=== PATIENT | female | born 1970 | race Caucasian/White ===

== ENCOUNTER 2024-08-26 08:17 | Outpatient (AMB) | payer MEDICAID, SELFPAY ==
[2024-08-26 08:36] VITALS: BP 135/86; PULSE 71; RESP 18; TEMP 36.3; O2SAT 99; BMI 24.3
--- NOTE | 2024-08-26 08:36 | PD.ORTHCLVIS ---
Vital signs 08/26/24 08:36 Height 1.7 m Height Method Stated Weight 70.449 kg Weight Measurement Method Standing Scale BMI 24.3 BP 135/86 H Blood Pressure Source Automatic Cuff Blood Pressure Location Right Upper Arm Position Sitting Respiration 18 Pulse 71 Pulse Source Monitor Temp 97.3 F Temp Source Temporal Artery Scan Pulse Oximetry (%) 99 Oxygen Delivery Method Room Air Med/Allergies Allergies & Medications Allergies No Known Allergies Allergy (Verified 08/26/24 08:37) Medication Reconciliation gabapentin 300 mg capsule 300 mg PO BID 08/26/24 [History Confirmed 08/26/24] Subjective Visit Visit for: follow up visit and x-rays Immunization / Flu Flu Vaccine in the Last 12 Months: No Flu Vaccine Exclusion Criteria: No Exclusion Criteria History of Present Illness Chief complaint: F/U MRI/XRAYS Patient is a 54-year-old female with bilateral hip and thigh pain. This been ongoing for 3 years. She also has had a history of multiple neurological issues including a foot drop on the right. It occurred for over 8 months and is resolved somewhat. She reports the pain is a burning pain and that she is extremely weak in both the legs. She previously saw a spine surgeon and was told that he never really did anything and signed off on her. Personal History Occupation: COMPOSITION TEACHER Red flag PMH: none Pain Pain level (0-10): 5 Pain duration: COMES AND GOES Pain location: inside (medial), outside (lateral), anterior and posterior Pain quality: sharp, dull and aching Pain timing: increases with activity Associated signs & symptoms: numbness and weakness Ambulatory data Ambulatory device: none Treatments Improvement with previous injections: No Improvement with PT: No Improvement with NSAIDS: n/a Review of Systems Review of Systems: All systems negative unless otherwise noted in HPI. Exam Exam Patient is in no acute distress and is cooperative with the examination today. Breathing is nonlabored. In no respiratory distress. Patient has no paraspinal tenderness. Spinal deformity [cannot] be appreciated. The gait of the patient is [nonantalgic] Bilateral extremities were evaluated and demonstrates sensation intact to light touch. Palpable pedal pulses are present. No significant edema is present. Bilateral knees were examined and the patient has full strength and range of motion.. The right hip was examined. Patient was able to flex to 90 degrees, adduct to 30 degrees, abduct to 40 degrees, internally rotate to 20 degrees, and externally rotate to 20 degrees. Patient has a negative logroll. Stinchfield is negative. The patient is nontender diffusely to touch. The left hip was examined. Patient was able to flex to [90] degrees, adduct to [30] degrees, abduct to [40] degrees, internally rotate to [20] degrees, and externally rotate to [20] degrees. Patient has a [negative] logroll. The stinchfield is [negative]. I reviewed her x-rays and MRI from [facility]. The x-rays demonstrate some sclerosis in the left femoral head. It is definitely pretty collapse. 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 I would watch her avascular necrosis right now as it is pretty collapse. All her symptoms appear to be from the spine that she has a positive shopping cart sign, and MRI evidence of spinal stenosis. There is also radicular symptoms all the way down to her toes. I discussed that this is unlikely to be caused by AVN alone. I do think that the spine is likely cause and she is in agreement. I recommend that she see a spine surgeon as there is MRI evidence of spinal stenosis which is actually consistent with her clinical exam as well. (2) Spinal stenosis: Status: Acute Office Procedures GNS Level of Care Nursing/Assessment Patient Status: Established Patient Nursing Assessment/Reassesment: Medication Reconciliation, Update PMH in EMR and Vital Signs Coordination of Care: Complex Care and Chronic Disease 1-5, Education Complex Pt/Fam, Consent,records obtained, informed consent, Results/Orders obtained and Staff clarify orders Established Patient Charge Established Patient Point Assignment: 95 Established Patient Point Charge: EP Level 3 (80-115) Past Medical History Past Medical History Have you ever been diagnosed with any of the following: Respiratory Problems Smoking: No Smoking Cessation Counseling: No
== END 2024-08-26 09:14 | disposition home or self-care (01) ==
LOC: HODSRG 08:17
PROVIDERS: Supervising Provider Orthopaedic Surgery Adult Reconstructive Orthopaedic Surgery; Visit Provider Orthopaedic Surgery Adult Reconstructive Orthopaedic Surgery
DX: M21.371 Foot drop, right foot (principal); M48.061 Spinal stenosis, lumbar region without neurogenic claudication
CPT/HCPCS: 99213; G0463

== ENCOUNTER 2024-11-01 12:56 | Outpatient (AMB) | payer MEDICAID, SELFPAY ==
--- NOTE | 2024-11-01 13:13 | PD.ORTHCLVIS ---
Vital signs 11/01/24 13:14 Height 1.7 m Height Method Stated Weight 71.214 kg Weight Measurement Method Standing Scale BMI 24.6 BP 149/92 H Blood Pressure Source Automatic Cuff Blood Pressure Location Left Upper Arm Position Sitting Respiration 18 Pulse 76 Pulse Source Monitor Temp 97.6 F Temp Source Temporal Artery Scan Pulse Oximetry (%) 98 Oxygen Delivery Method Room Air Med/Allergies Allergies & Medications Allergies No Known Allergies Allergy (Verified 11/01/24 13:14) Medication Reconciliation gabapentin 300 mg capsule 300 mg PO BID 08/26/24 [History Confirmed 11/01/24] Exam Exam Patient is in no acute distress and is cooperative with the examination today. Breathing is nonlabored. In no respiratory distress. Patient has no paraspinal tenderness. Spinal deformity [cannot] be appreciated. The gait of the patient is [nonantalgic] Bilateral extremities were evaluated and demonstrates sensation intact to light touch. Palpable pedal pulses are present. No significant edema is present. Bilateral knees were examined and the patient has full strength and range of motion.. The right hip was examined. Patient was able to flex to 90 degrees, adduct to 30 degrees, abduct to 40 degrees, internally rotate to 20 degrees, and externally rotate to 20 degrees. Patient has a negative logroll. Stinchfield is negative. The patient is nontender diffusely to touch. The left hip was examined. Patient was able to flex to [90] degrees, adduct to [30] degrees, abduct to [40] degrees, internally rotate to [20] degrees, and externally rotate to [20] degrees. Patient has a [negative] logroll. The stinchfield is [negative]. I reviewed her x-rays and MRI from [facility]. The x-rays demonstrate some sclerosis in the left femoral head. It is definitely pretty collapse. I also reviewed her spine MRI which demonstrates central canal stenosis at L4-5 I reviewed her MRI of the knee. There is no official report. I do see bone bruises on both the femur and the tibia. 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 I would watch her avascular necrosis right now as it is precollapse. All her symptoms appear to be from the spine that she has a positive shopping cart sign, and MRI evidence of spinal stenosis. There is also radicular symptoms all the way down to her toes. On x-ray there is sclerosis of the femoral head and I am worried that she has avascular porosis. Will get an MRI to confirm this. I also recommend that she get a spine evaluation if she has had bilateral radicular symptoms for a while and an abnormal MRI (3) Avascular necrosis of hip: Status: Acute Office Procedures GNS Level of Care Nursing/Assessment Patient Status: Established Patient Nursing Assessment/Reassesment: Medication Reconciliation, Update PMH in EMR and Vital Signs Coordination of Care: Complex Care and Chronic Disease 1-5, Education Complex Pt/Fam, Consent,records obtained, informed consent, 1 Ins Authorization, Results/Orders obtained and Staff clarify orders Established Patient Charge Established Patient Point Assignment: 110 Established Patient Point Charge: Level 3 (80-115) MA Intake Visit Data Collection New Patient or Established: Established Patient (seen at 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 This has been ongoing for 3 years. She also has had a history of multiple neurological issues including a foot drop on the right. It occurred for over 8 months and is resolved somewhat. She reports the pain is a burning pain and that she is extremely weak in both the legs. She previously saw a spine surgeon and was told that he never really did anything and signed off on her. She is currently being referred for spine evaluation. I would like to get bilateral hip MRIs as we do not have a confirmed diagnosis of AVN Pain Pain level (0-10): 6 Pain duration: ON AND OFF Pain location: inside (medial), outside (lateral), anterior and posterior Pain quality: sharp, dull and aching Pain timing: night, increases with activity and stairs Associated signs & symptoms: stiffness Ambulatory data Ambulatory device: none Treatments Improvement with previous injections: No Improvement with PT: No Improvement with NSAIDS: no Review of Systems Review of Systems: All systems negative unless otherwise noted in HPI.
[2024-11-01 13:14] VITALS: BP 149/92; PULSE 76; RESP 18; TEMP 36.4; O2SAT 98; BMI 24.6
== END 2024-11-01 13:21 | disposition home or self-care (01) ==
LOC: HODSRG 12:56
PROVIDERS: Supervising Provider Orthopaedic Surgery Adult Reconstructive Orthopaedic Surgery; Visit Provider Orthopaedic Surgery Adult Reconstructive Orthopaedic Surgery
DX: M48.061 Spinal stenosis, lumbar region without neurogenic claudication (principal); M21.371 Foot drop, right foot; M87.88 Other osteonecrosis, other site
CPT/HCPCS: 99213; G0463

== ENCOUNTER → 2024-11-30 | Outpatient (CLI) | payer MEDICAID, SELFPAY ==
--- NOTE | 2024-11-30 | XR_ITS ---
Examination: MRI left hip without intravenous contrast. Date and time of exam: November 30, 2024 1438 hours INDICATIONS: Left hip pain months Technique: Multiple MRI images of the left hip have been obtained T1 weighted coronal sections, TR 500, TE 12 Proton density coronal fat saturated images, TR 3000, TE 71 T2-weighted coronal images, 5850, TE 104 T1-weighted axial images, TR 521, TE 12 T2-weighted axial fat suppressed images, TR 5730, TE 103. Findings: There is abnormal signal in the left femoral head, occupying approximately 30% of the femoral head No fracture or marrow edema Minimal left effusion No definite labral tear Bones of the pelvis exhibit adequate signal Contracted urinary bladder IMPRESSION: Avascular necrosis left femoral head
--- NOTE | 2024-11-30 14:00 | XR_ITS ---
Examination: MRI right hip without intravenous contrast. Date and time of exam: November 30, 2024 1438 hours INDICATIONS: Bilateral hip pain beginning January 2023 Technique: Multiple MRI images of the right hip have been obtained T1 weighted coronal sections, TR 500, TE 12 Proton density coronal fat saturated images, TR 3000, TE 71 T2-weighted coronal images, 5850, TE 104 T1-weighted axial images, TR 521, TE 12 T2-weighted axial fat suppressed images, TR 5730, TE 103. Findings: Mild narrowing right hip joint Serpiginous abnormal signal involving the femoral head occupying 30% of the articulating surface No occult fracture No asymmetric hip effusion Small [id number] images do not demonstrate definite labral tear IMPRESSION: Avascular necrosis right femoral head
== END | disposition home or self-care (01) ==
PROVIDERS: Referring Provider Orthopaedic Surgery Adult Reconstructive Orthopaedic Surgery; Visit Provider Orthopaedic Surgery Adult Reconstructive Orthopaedic Surgery
DX: M87.852 Other osteonecrosis, left femur (principal); M87.851 Other osteonecrosis, right femur
CPT/HCPCS: 73721

== ENCOUNTER 2024-12-06 07:55 | Outpatient (AMB) | payer MEDICAID, SELFPAY ==
--- NOTE | 2024-12-06 07:59 | ORTHONT_ITS ---
Vital signs 12/06/24 08:00 Height 1.7 m Height Method Stated Weight 69.626 kg Weight Measurement Method Standing Scale BMI 24.0 BP 147/86 H Blood Pressure Source Automatic Cuff Blood Pressure Location Left Upper Arm Position Sitting Respiration 19 Pulse 80 Pulse Source Monitor Temp 97.4 F Temp Source Temporal Artery Scan Pulse Oximetry (%) 92 L Oxygen Delivery Method Room Air Med/Allergies Allergies & Medications Allergies No Known Allergies Allergy (Verified 12/06/24 08:00) Medication Reconciliation gabapentin 300 mg capsule 300 mg PO BID 08/26/24 [History Confirmed 12/06/24] Exam Exam Patient is in no acute distress and is cooperative with the examination today. Breathing is nonlabored. In no respiratory distress. Patient has no paraspinal tenderness. Spinal deformity [cannot] be appreciated. The gait of the patient is [nonantalgic] Bilateral extremities were evaluated and demonstrates sensation intact to light touch. Palpable pedal pulses are present. No significant edema is present. Bilateral knees were examined and the patient has full strength and range of motion.. The right hip was examined. Patient was able to flex to 90 degrees, adduct to 30 degrees, abduct to 40 degrees, internally rotate to 20 degrees, and externally rotate to 20 degrees. Patient has a negative logroll. Stinchfield is negative. The patient is nontender diffusely to touch. The left hip was examined. Patient was able to flex to [90] degrees, adduct to [30] degrees, abduct to [40] degrees, internally rotate to [20] degrees, and externally rotate to [20] degrees. Patient has a [negative] logroll. The stinchfield is [negative]. I reviewed her x-rays and MRI from [facility]. The x-rays demonstrate some sclerosis in the left femoral head. It is definitely pretty collapse. I also reviewed her spine MRI which demonstrates central canal stenosis at L4-5 I reviewed her MRI of the knee. There is no official report. I do see bone bruises on both the femur and the tibia. The ACL is actually intact MRIs of the hip from [facility] were reviewed by me today. This demonstrates mild bilateral hip avascular porosis was T2 signal changes in the femoral head. 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 I would watch her avascular necrosis right now as it is precol lapse. All her symptoms appear to be from the spine that she has a positive shopping cart sign, and MRI evidence of spinal stenosis. There is also radicular symptoms all the way down to her toes. On x-ray there is sclerosis of the femoral head and I am worried that she has avascular necrosis. We did obtain an MRI which demonstrates mild avascular porosis. Her symptoms appear to be from the hip and she has nerve issues such as a foot drop and bilateral radicular painWe will continue to watch her hip every 6 months to a year to see if the avascular necrosis worsens. We discussed with her that I would continue to watch it as she has a completely benign hip examination at this point (3) Avascular necrosis of hip: Status: Acute Office Procedures GNS Level of Care Nursing/Assessment Patient Status: Established Patient Nursing Assessment/Reassesment: Medication Reconciliation, Update PMH in EMR and Vital Signs Coordination of Care: Complex Care and Chronic Disease 1-5, Education Complex Pt/Fam, Consent,records obtained, informed consent, Results/Orders obtained and Staff clarify orders Established Patient Charge Established Patient Point Assignment: 95 Established Patient Point Charge: Level 3 (80-115) MA Intake Visit Data Collection New Patient or Established: Established Patient (seen at [facility] within 3 years) Reason for Visit:: MRI BL HIP RESULTS Seen by Clinical Staff ONLY (RN/MA): No 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 This has been ongoing for 3 years. She also has had a history of multiple neurological issues including a foot drop on the right. It occurred for over 8 months and is resolved somewhat. She reports the pain is a burning pain and that she is extremely weak in both the legs. She previously saw a spine surgeon and was told that he never really did anything and signed off on her. She is currently b [facility] referred for spine evaluation. She is set for spine evaluation in December. Pain Pain level (0-10): 7 Pain duration: CONSTANT Pain location: inside (medial) Pain quality: aching Pain timing: night, increases with activity and stairs Associated signs & symptoms: none Ambulatory data Ambulatory device: none Treatments Improvement with previous injections: No Improvement with PT: No Improvement with NSAIDS: no Review of Systems Review of Systems: All systems negative unless otherwise noted in HPI.
[2024-12-06 08:00] VITALS: BP 147/86; PULSE 80; RESP 19; TEMP 36.3; O2SAT 92; BMI 24.0
== END 2024-12-06 08:15 | disposition home or self-care (01) ==
LOC: HODSRG 07:55
PROVIDERS: Supervising Provider Orthopaedic Surgery Adult Reconstructive Orthopaedic Surgery; Visit Provider Orthopaedic Surgery Adult Reconstructive Orthopaedic Surgery
DX: M48.061 Spinal stenosis, lumbar region without neurogenic claudication (principal); M21.371 Foot drop, right foot; M87.88 Other osteonecrosis, other site
CPT/HCPCS: 99213; G0463

== ENCOUNTER 2025-06-06 08:02 | Outpatient (AMB) | payer MEDICAID, SELFPAY ==
--- NOTE | 2025-06-06 08:03 | PD.ORTHCLVIS ---
Vital signs 06/06/25 08:09 Height 1.7 m Height Method Measured Weight 63.56 kg Weight Measurement Method Standing Scale BMI 21.9 BP 105/69 Blood Pressure Source Automatic Cuff Blood Pressure Location Right Upper Arm Position Sitting Respiration 18 Pulse 67 Pulse Source Monitor Temp 97.5 F Temp Source Temporal Artery Scan Pulse Oximetry (%) 98 Oxygen Delivery Method Room Air Med/Allergies Allergies & Medications Allergies No Known Allergies Allergy (Verified 06/06/25 08:10) Exam Exam Patient is in no acute distress and is cooperative with the examination today. Breathing is nonlabored. In no respiratory distress. Patient has no paraspinal tenderness. Spinal deformity [cannot] be appreciated. The gait of the patient is [nonantalgic] Bilateral extremities were evaluated and demonstrates sensation intact to light touch. Palpable pedal pulses are present. No significant edema is present. Bilateral knees were examined and the patient has full strength and range of motion.. The right hip was examined. Patient was able to flex to 90 degrees, adduct to 30 degrees, abduct to 40 degrees, internally rotate to 20 degrees, and externally rotate to 20 degrees. Patient has a negative logroll. Stinchfield is negative. The patient is nontender diffusely to touch. The left hip was examined. Patient was able to flex to [90] degrees, adduct to [30] degrees, abduct to [40] degrees, internally rotate to [20] degrees, and externally rotate to [20] degrees. Patient has a [negative] logroll. The stinchfield is [negative]. I reviewed her x-rays and MRI from [facility]. The x-rays demonstrate some sclerosis in the left femoral head. It is definitely pre collapse. I also reviewed her spine MRI which demonstrates central canal stenosis at L4-5 I reviewed her MRI of the knee. There is no official report. I do see bone bruises on both the femur and the tibia. The ACL is actually intact MRIs of the hip from [facility] were reviewed by me today. This demonstrates mild bilateral hip avascular necrosis was T2 signal changes in the femoral head. 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 I would watch her avascular necrosis right now as it is precollapse. All her symptoms appear to be from the spine that she has a positive shopping cart sign, and MRI evidence of spinal stenosis. There is also radicular symptoms all the way down to her toes. On x-ray there is sclerosis of the femoral head and I am worried that she has avascular necrosis which we confirmed on MRI. Her symptoms appear to be from the hip and she has nerve issues such as a foot drop and bilateral radicular pain. We will continue to watch her hip every 6 months to a year to see if the avascular necrosis worsens. We will get new x-rays today and see her in about 6 months (3) Avascular necrosis of hip: Status: Acute Office Procedures GNS Level of Care Nursing/Assessment Patient Status: Established Patient Nursing Assessment/Reassesment: Medication Reconciliation, Update PMH in EMR and Vital Signs Coordination of Care: Complex Care and Chronic Disease 1-5, Education Complex Pt/Fam, Consent,records obtained, informed consent, Lab and Imaging orders, Results/Orders obtained and Staff clarify orders Established Patient Charge Established Patient Point Assignment: 110 Established Patient Point Charge: EP Level 3 (80-115) MA Intake Visit Data Collection New Patient or Established: Established Patient (seen at [facility] within 3 years) Reason for Visit:: BILATERAL HIP PAIN Seen by Clinical Staff ONLY (RN/MA): No 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 PCP or OBGYN visit in last 3 months: Yes Hx Now: No Do You Feel Safe at Home: Yes Authorities Contacted: N/A Questionairres Past Medical History Past Medical History Have you ever been diagnosed with any of the following: Respiratory Problems Smoking: No Smoking Cessation Counseling: No Smoking Exposure: No Subjective Visit Visit for: follow up visit and hip Immunization / Flu Flu Vaccine in the Last 12 Months: No Flu Vaccine Exclusion Criteria: No Exclusion Criteria History of Present Illness Chief complaint: BILATERAL HIP PAIN Patient is a 54-year-old female with bilateral hip and thigh pain. This has been ongoing for 3 years. She also has had a history of multiple neurological issues including a foot drop on the right. It occurred for over 8 months and is resolved somewhat. She reports the pain is a burning pain and that she is extremely weak in both the legs. She previously saw a spine surgeon and was told that he never really did anything and signed off on her. She is currently being referred for spine evaluation. She has been getting a spine evaluation Personal History Red flag PMH: none BMI Counceling provided: Yes Pain Pain level (0-10): 5 Pain duration: CONSTANT Pain location: inside (medial) Pain quality: aching Pain timing: night, increases with activity and stairs Associated signs & symptoms: none Ambulatory data Ambulatory device: none Treatments Improvement with previous injections: No Improvement with PT: No Improvement with NSAIDS: no Review of Systems Review of Systems: All systems negative unless otherwise noted in HPI.
[2025-06-06 08:09] VITALS: BP 105/69; PULSE 67; RESP 18; TEMP 36.4; O2SAT 98; BMI 21.9
--- NOTE | 2025-06-06 08:18 | XR_ITS ---
Examination: Bilateral hips, AP pelvis, 5 views Technique: AP, lateral views both hips, AP pelvis, 5 views Exam date and time: June 06, 2025 0829 hours INDICATIONS: Bilateral rib pain beginning 2 years ago FINDINGS: Moderate osteopenia. Moderate bilateral hip osteoarthritis Subtle sclerosis in both femoral heads No fractures Bones of the pelvis intact IMPRESSION: Moderate bilateral hip osteoarthritis
== END 2025-06-06 08:20 | disposition home or self-care (01) ==
PROVIDERS: Supervising Provider Orthopaedic Surgery Adult Reconstructive Orthopaedic Surgery; Visit Provider Orthopaedic Surgery Adult Reconstructive Orthopaedic Surgery
DX: M25.552 Pain in left hip (principal); M25.551 Pain in right hip; M16.0 Bilateral primary osteoarthritis of hip; M21.371 Foot drop, right foot; M48.00 Spinal stenosis, site unspecified; M87.88 Other osteonecrosis, other site
CPT/HCPCS: 73522; 99213; G0463

== ENCOUNTER 2025-09-05 07:46 | Outpatient (AMB) | payer MEDICAID, SELFPAY ==
--- NOTE | 2025-09-05 08:05 | ORTHONT_ITS ---
Vital signs 09/05/25 08:06 Height 1.7 m Height Method Measured Weight 64.098 kg Weight Measurement Method Standing Scale BMI 22.1 BP 123/82 Blood Pressure Source Automatic Cuff Blood Pressure Location Left Upper Arm Position Sitting Respiration 18 Pulse 72 Pulse Source Monitor Temp 97.4 F Temp Source Temporal Artery Scan Pulse Oximetry (%) 98 Oxygen Delivery Method Room Air Med/Allergies Allergies & Medications Allergies No Known Allergies Allergy (Verified 09/05/25 08:07) Medication Reconciliation gabapentin 300 mg capsule 300 mg PO BID 08/26/24 [History Confirmed 09/05/25] Exam Exam Patient is in no acute distress and is cooperative with the examination today. Breathing is nonlabored. In no respiratory distress. Patient has no paraspinal tenderness. Spinal deformity [cannot] be appreciated. The gait of the patient is [nonantalgic] Bilateral extremities were evaluated and demonstrates sensation intact to light touch. Palpable pedal pulses are present. No significant edema is present. Bilateral knees were examined and the patient has full strength and range of motion.. The right hip was examined. Patient was able to flex to 90 degrees, adduct to 30 degrees, abduct to 40 degrees, internally rotate to 20 degrees, and externally rotate to 20 degrees. Patient has a negative logroll. Stinchfield is negative. The patient is nontender diffusely to touch. The left hip was examined. Patient was able to flex to [90] degrees, adduct to [30] degrees, abduct to [40] degrees, internally rotate to [20] degrees, and externally rotate to [20] degrees. Patient has a [negative] logroll. The stinchfield is [negative]. 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 This femoral head is still severe I reviewed her MRI of the knee. There is no official report. I do see bone bruises on both the femur and the tibia. The ACL is actually intact MRIs of the hip from [facility] imaging were reviewed by me today. This demonstrates mild bilateral hip avascular necrosis was T2 signal changes in the femoral head. 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 I would watch her avascular necrosis right now as it is precollapse. All her symptoms appear to be from the spine that she has a positive shopping cart sign, and MRI evidence of spinal stenosis. There is also radicular symptoms all the way down to her toes. On x-rays there is mild to moderate arthritis and avascular porosis. We will continue to monitor it. Will see her in approximately 6 months. We discussed that should this progress significantly we would discuss about different operative options (3) Avascular necrosis of hip: Status: Acute Office Procedures GNS Level of Care Nursing/Assessment Patient Status: Established Patient Nursing Assessment/Reassesment: Medication Reconciliation, Update PMH in EMR and Vital Signs Coordination of Care: Complex Care and Chronic Disease 1-5, Education Complex Pt/Fam, Consent,records obtained, informed consent, Results/Orders obtained and Staff clarify orders Established Patient Charge Established Patient Point Assignment: 95 Established Patient Point Charge: Level 3 (80-115) MA Intake Visit Data Collection New Patient or Established: Established Patient (seen at [facility] within 3 years) Reason for Visit:: BILATERAL HIP PAIN/XRAY RESULTS Seen by Clinical Staff ONLY (RN/MA): No Pit Inspector Required: No PCP or OBGYN visit in last 3 months: Yes Hx Now: No Do You Feel Safe at Home: Yes Authorities Contacted: N/A Questionairres Past Medical History Past Medical History Have you ever been diagnosed with any of the following: Respiratory Problems Smoking: No Smoking Cessation Counseling: No Smoking Exposure: No Subjective Visit Visit for: follow up visit and hip Immunization / Flu Flu Vaccine in the Last 12 Months: No Flu Vaccine Exclusion Criteria: No Exclusion Criteria History of Present Illness Chief complaint: BILATERAL HIP PAIN/XRAY RESULTS Patient is a 54-year-old female with bilateral hip and thigh pain. This has been ongoing for 3 years. She also has had a history of multiple neurological issues including a foot drop on the right. It occurred for over 8 months and is resolved somewhat. She reports the pain is a burning pain and that she is extremely weak in both the legs. She previously saw a spine surgeon and was told that he never really did anything and signed off on her. She is currently being referred for spine evaluation. She has been getting a spine evaluation and was told she needs a fusion. Her hip pain is tolerable. Personal History Red flag PMH: none BMI Counceling provided: Yes Pain Pain level (0-10): 6 Pain duration: CONSTANT Pain location: inside (medial) Pain quality: aching Pain timing: night, increases with activity and stairs Associated signs & symptoms: none Ambulatory data Ambulatory device: none Treatments Improvement with previous injections: No Improvement with PT: No Improvement with NSAIDS: no Review of Systems Review of Systems: All systems negative unless otherwise noted in HPI.
[2025-09-05 08:06] VITALS: BP 123/82; PULSE 72; RESP 18; TEMP 36.3; O2SAT 98; BMI 22.1
== END 2025-09-05 08:21 | disposition home or self-care (01) ==
PROVIDERS: Supervising Provider Orthopaedic Surgery Adult Reconstructive Orthopaedic Surgery; Visit Provider Orthopaedic Surgery Adult Reconstructive Orthopaedic Surgery
DX: M87.88 Other osteonecrosis, other site (principal); M48.00 Spinal stenosis, site unspecified; M21.379 Foot drop, unspecified foot
CPT/HCPCS: 99213; G0463